=== PATIENT | female | born 1950 | race Caucasian/White ===

== ENCOUNTER → 2018-03-12 06:23 | Outpatient (CLI) | payer MEDICARE, OTHER, SELFPAY ==
--- NOTE | 2018-03-12 06:26 | CT_ITS ---
STUDY: CT MAXILLOFACIAL SINUSES REASON FOR EXAM: Female, 68 years old. Sinusitis RADIATION DOSAGE (If Supplied By Facility): CTDIvol = ( 33.06 ) mGy, DLP = ( 891.70 ) mGycm TECHNIQUE: The patient was scanned in a multi detector CT scanner. High resolution axial imaging was performed without the administration of intravenous contrast material. Sagittal and coronal images were reconstructed. Individualized dose optimization techniques were used for this CT. COMPARISON: None. FINDINGS: FRONTAL SINUSES: Normal aeration, without mucosal inflammatory disease. ETHMOIDAL SINUSES: There is mild mucoperiosteal thickening of the posterior most left ethmoid sinus communicating with the opacified left sphenoid sinus. The remaining ethmoidal sinuses are clear. MAXILLARY SINUSES: Normal aeration, without mucosal inflammatory disease. SPHENOIDAL SINUSES: Right sphenoid normal. Complete chronic opacification of the left sphenoid sinus. There is patency of the bilateral maxillary infundibuli with normal uncinate processes, ethmoid bullae, and hiatus semilunaris. Normal bilateral middle turbinates. Normal bilateral inferior turbinates. Normal midline nasal septum. There is patency of the bilateral nasal airways. The visualized osseous structures are normal. The visualized bilateral orbital contents are normal. Supraclavicular, cervical, pharyngeal, laryngeal, and facial soft tissues exhibit no acute abnormalities. There are shotty cervical lymph nodes bilaterally. CT/Sinus/Facial Bone IMPRESSION: Chronic complete opacification of the left sphenoid sinus, with mucoperiosteal thickening extending into the immediately adjacent posterior most left ethmoid sinus. The remaining paranasal sinuses are clear. The mastoid air cells and middle ear cavities are clear. Electronically Signed: Leighton Grayson, at 9:21 EDT Tel , Service support ,
== END ==
PROVIDERS: Family Provider Internal Medicine; PCP Internal Medicine; Visit Provider Otolaryngology
DX: J32.9 Chronic sinusitis, unspecified (principal)
CPT/HCPCS: 70486

== ENCOUNTER 2018-05-17 05:37 | Day surgery (SDC) | payer MEDICARE, OTHER, SELFPAY ==
--- NOTE | 2018-05-13 10:14 | EKG12_ITS ---
Test Reason : PREOP Blood Pressure : / mmHG Vent. Rate : 065 BPM Atrial Rate : 065 BPM P-R Int : 158 ms QRS Dur : 096 ms QT Int : 428 ms P-R-T Axes : 054 -03 038 degrees QTc Int : 445 ms Normal sinus rhythm Moderate voltage criteria for LVH, may be normal variant Borderline ECG Confirmed by MARY JAMESON, ANTONINO ([id number]), supervising film or videotape editor MANUEL FRANCE ([id number]) on 05/17/2018 1:38:52 PM Referred By: Rangel Jett Confirmed By:ANTONINO HERNANDEZ MD
[2018-05-13 10:53] LABS: Hematocrit 35.8 % (37-47); Hemoglobin 11.4 g/dl (12.0-15.0); Mean Corp Hgb Conc 31.8 g/gl (32-36); Mean Corpuscular Hgb 27.3 pg (27.0-32.0); Mean Corpuscular Volume 85.6 fL (81-99); Mean Platelet Vol. 9.7 fl (6.2-12.0); Platelet Count 390 K/mm3 (150-450); RBC Distribution Width CV 13.1 % (11.6-14.6); RBC Distribution Width SD 40.6 fl (35.1-43.9); Red Blood Count 4.18 M/mm3 (4.2-5.4); White Blood Count 5.4 K/mm3 (4.4-11.0)
[2018-05-13 10:59] LABS: Scan Indicated on CBC? Y/N NO
[2018-05-13 11:21] LABS: Anion Gap 10 (5-15); BUN 15 mg/dL (7-18); BUN/Creat Ratio 24.9 RATIO (10-20); Calcium,Total 8.7 mg/dL (8.5-10.1); Chloride 104 mmol/L (98-107); EST Glomerular Filtration Rate 106 mL/min (>60); Est Glom Filt Rate - Afr Amer 128 mL/min (>60); Glucose 97 mg/dL (74-106); Potassium 4.1 mmol/L (3.5-5.1); Sodium Level 143 mmol/L (136-145)
[2018-05-17 05:57] VITALS: BP 152/75; PULSE 85; RESP 16; TEMP 36.6; O2SAT 98; BMI 32.6
--- NOTE | 2018-05-17 07:30 | MISC_PTH ---
PATIENT: FABI ACKERMAN LOC: [facility] [place] U#:[id number] AGE/SX: 68/F ROOM: RE05/17/[address]: Dr. Rangel Jett MD : 1950 BED: DIS: 05/17/2018 SPEC #: [id number] RECD: 05/17/18 09:23 STATUS: FABIOLA ROSEMARY #: [id number] MADELEINE: 05/17/18 07:[address]: Rangel Jett DEPT: SURGICAL PATHOLOGY RECD BY: Miriam Whatley ENTERED: 05/17/18 10:27 SP [place] [facility] [place]: Dr. Mitch Meeks MD Tissues: Sphenoid sinus, NOS Procedures: Special Stain Group I Surgery Specimen Level IV GMS Stain (control) HEADER OPERATION: Endoscopic sphenoidotomy with navigation PRE-OP DIAGNOSIS: Chronic sinusitis TISSUE SUBMITTED: Sphenoid contents, left MICROSCOPIC DIAGNOSIS Sphenoid sinus contents, excision: Fungal hyphae consistent with aspergillus species. AM:jamie 05/18/18 COMMENT GMS stain with matched control was used in the evaluation of this case. Case has been reviewed in consultation with Dr. Phoenix who concurs with the above diagnosis. IDC:SJ MICROSCOPIC DESCRIPTION Slides are reviewed. GROSS DESCRIPTION Received in fixative is one container labeled with the patient's name and designated sphenoid sinus contents, let. The specimen consists of multiple irregular fragments of dark chan-black material that in aggregate measure 1.7 x 1 x 0.2 cm. The specimen is totally submitted in one cassette. / AM:jamie 05/17/18 TC:5 CPT: 76393, 93338
--- NOTE | 2018-05-17 07:36 | DCINST_ITS ---
You will use the following diet at home:: No restrictions Your food should be the consistency of: Regular Discharge Activity: - - No Nose Blowing Additional Activity Instructions:: Start irrigation on 05/18/18. Irrigate 4x/ day. Start antibiotics tonight. Allergies/Adverse Reactions: Allergies No Known Allergies Allergy (Verified 05/12/18 11:02) Medications to take at Discharge NK [NK] 05/12/18 Primary Care Physician: Mitch Meeks [Primary Care Provider] - Test Results: Test results from this visit will be discussed in further detail at your follow- up appointment, if applicable.
[2018-05-17] MEDS: Oxymetazoline 0.05% 1 SPRAY SPRAY.BTL 3 SPRAY NASAL (07:56)
--- NOTE | 2018-05-17 08:53 | OP.PCM_ITS ---
Report of Operation Date of Procedure: 05/17/18 Pre-Operative Diagnosis: chronic sphenoid sinusitis Post-Operative Diagnosis: same Surgery/Procedure Performed:: left sphenoidectomy with tissue removal. Use of navigation Description of Surgical Findings:: fungal debris Type of Anesthesia:: General Anesthesiologist: Sujit Guzman Specimen's removed: yes Estimated Blood Loss (mL): minimal Description of Procedure: The patient was taken to the operating room on 05/17/18. She was given sufficient general endotracheal anesthesia. The head of bed was elevated 30 degrees. The navigation markers were placed per protocol and registered successfully. A zero degree rigid nasal endoscope was used throughout the entire case. The nose was decongested with afrin pledgets. The pledgets were removed. I then injected 1% lidocaine with epinephrine into the front face of the left sphenoid. There was polypoid mucosa overlying the front face of the left sphenoid. Using navigation for verification, I popped into the front face of the sphenoid with a suction catheter. I immediately saw pus. I resected the inferior most portion of the superior turbinate as it was covering the os. Next the sphenoid opening was widened with fernandez cut forceps and a sinus shaver. There appeared to be fungal debris within the sphenoid. I then copious irrigated the sphenoid and removed tissue from the sphenoid using a curette and suction. Eventually, all of the debris was removed. Hemostasis was achieved with afrin pledgets and some sparing suction cautery. The patient was then awoken and brought to the recovery room in stable condition. Blood loss minimal , replacement none. Sponge, needle and instrument count were correct at the end of the procedure.
[2018-05-17 08:58] VITALS: BP 128/59; BP 152/75; PULSE 77; RESP 14; TEMP 37.6; O2SAT 93
[2018-05-17 09:00] VITALS: BP 114/68; BP 152/75; PULSE 79; RESP 16; O2SAT 93
[2018-05-17 09:15] VITALS: BP 126/54; BP 152/75; PULSE 76; RESP 16; TEMP 37.6; O2SAT 93
[2018-05-17 09:45] VITALS: BP 152/75
== END 2018-05-17 09:30 | disposition home or self-care (01) ==
LOC: SDC 05:38 → AC 05:38
PROVIDERS: Family Provider Internal Medicine; PCP Internal Medicine; Visit Provider Otolaryngology
PROC: (CPT 31288; principal; 2018-05-17 07:00)
DX: J32.3 Chronic sphenoidal sinusitis (principal); B48.8 Other specified mycoses; Z79.2 Long term (current) use of antibiotics; Z79.899 Other long term (current) drug therapy
CPT/HCPCS: 31288; 36415; 80048; 85027; 87102; 87206; 88305; 88312; 93005; J7120; J2405